=== PATIENT | male | born 1985 | race Asian ===

== ENCOUNTER 2022-01-01 00:30 | Emergency (ER) | payer SELFPAY ==
[2022-01-01] MEDS ORDERED: Sodium Chloride 0.9% 1,000 ML IV SCH (01:00)
[2022-01-01] MEDS ORDERED: Ondansetron 4 MG/2 ML SDV IVPUSH ONE (01:08)
[2022-01-01 01:28] LABS: ESTIMATED GFR 80 mL/min (>60)
== END 2022-01-01 03:05 | disposition home or self-care (01) ==
LOC: FB.ED 00:30
DX: F10.129 Alcohol abuse with intoxication, unspecified (principal); Y90.0 Blood alcohol level of less than 20 mg/100 ml
CPT/HCPCS: 36415; 80053; 80307; 83735; 85025; 96361; 96374; 99283-25; J2405; J7030